=== PATIENT | female | born 1985 ===

== ENCOUNTER 2020-12-11 13:21 | Emergency (ER) | payer SELFPAY ==
--- NOTE | 2020-12-11 13:48 | Event Note ---
ED Screening Note Date of service: 12/11/20 Time: 13:38 ED Screening Note: This initial assessment/diagnostic orders/clinical plan/treatment(s) is/are subject to change based on patients health status, clinical progression and re- assessment by fellow clinical providers in the ED. Further treatment and workup at subsequent clinical providers discretion. Patient/guardian urged not to elope from the ED as their condition may be serious if not clinically assessed and managed. Initial orders include: 35-year-old obese female states she is Covid positive. She reports to the emergency room complaining of chills body aches dry cough nausea she denies vomiting and reports one episode of loose stool today. She is has a history of diabetes
[2020-12-11 14:19] LABS: Hematocrit 40.1 % (30.3-42.9); Hemoglobin 13.6 gm/dl (10.1-14.3); Mean Corpuscular HGB Conc 34 % (30-34); Mean Corpuscular Volume 85 fl (79-97); Platelet Count 298 K/mm3 (140-440); Red Blood Count 4.72 M/mm3 (3.65-5.03); Red Cell Distribution Width 14.1 % (13.2-15.2)
--- NOTE | 2020-12-11 14:22 | XRay Report ---
CHEST 2 VIEWS INDICATION / CLINICAL INFORMATION: covid +. COMPARISON: None available. FINDINGS: SUPPORT DEVICES: None. HEART / MEDIASTINUM: No significant abnormality. LUNGS / PLEURA: There are minimal patchy parenchymal opacities in the left lung base No pneumothorax. ADDITIONAL FINDINGS: No significant additional findings. IMPRESSION: 1. There is minimal patchy parenchymal opacity in the left lung base Signer Name: Devonte Mccracken MD Signed: 12/11/2020 2:17 PM Workstation Name: [id number]
[2020-12-11 14:33] LABS: Alanine Aminotransferase 14 units/L (7-56); Albumin 3.8 g/dL (3.9-5); Blood Urea Nitrogen 5 mg/dL (7-17); Calcium 8.4 mg/dL (8.4-10.2); Hemolysis Index 0
[2020-12-11 14:39] LABS: BUN/Creatinine Ratio 7
[2020-12-11] MEDS ORDERED: ONDANSETRON 4 MG/2 ML INJ IM ONE (15:38)
[2020-12-11] MEDS ORDERED: MORPHINE 4 MG/1 ML INJ IM ONE (15:38)
[2020-12-11] MEDS ORDERED: KETOROLAC 60 MG/2 ML INJ IM ONE (15:39)
--- NOTE | 2020-12-11 15:47 | Emergency Department Report ---
HPI - General Chief Complaint: Pain General PUI?: Yes Time Seen by Provider: 12/11/20 15:15 - HPI HPI: Room 38 The patient is a 35-year-old female presenting with a chief complaint of body aches. The patient states she tested positive for COVID-19 12/09/2020. The patient states the following day she noticed myalgias greatest on the left side headache and loss of sense of taste and smell. Patient admits to occasional shortness of breath and occasional cough productive of yellow sputum. Patient denies history of fever ED Past Medical Hx - Past Medical History Hx Diabetes: Yes - Surgical History Hx Cholecystectomy: Yes Additional Surgical History: CSECTION - Family History Family history: no significant - Social History Smoking Status: Former Smoker (None since 2006) Substance Use Type: None (Denies illicit drug use), Alcohol (Occasional) - Medications Home Medications: Home Medications Medication Instructions Recorded Confirmed Last Taken Type buPROPion XL [Wellbutrin Xl] 150 mg PO QAM 12/11/20 12/11/20 Unknown History ED Review of Systems ROS: Stated complaint: PT STATES SHE HAS POS COVID TEST Other details as noted in HPI Constitutional: denies: fever Eyes: denies: eye pain ENT: other (Loss of taste and smell) Respiratory: cough, shortness of breath Endocrine: no symptoms reported Gastrointestinal: denies: abdominal pain Genitourinary: denies: dysuria Musculoskeletal: myalgia Neurological: headache Physical Exam - Physical Exam Vital Signs: Vital Signs 12/11/20 13:35 Temperature 98.3 F Pulse Rate 98 H Respiratory 22 Rate Blood Pressure 139/87 O2 Sat by Pulse 97 Oximetry Physical Exam: GENERAL: The patient is well-developed well-nourished female lying on stretcher not appearing to be in acute distress. [] HEENT: Normocephalic. Atraumatic. Extraocular motions are intact. Patient has moist mucous membranes. NECK: Supple. No meningitic signs are noted. Trachea midline CHEST/LUNGS: Clear to auscultation. There is no respiratory distress noted. HEART/CARDIOVASCULAR: Regular. There is no tachycardia. There is no gallop rub or murmur. ABDOMEN: Abdomen is soft, nontender. Patient has normal bowel sounds. There is no abdominal distention. SKIN: There is no rash. There is no edema. There is no diaphoresis. NEURO: The patient is awake, alert, and oriented. The patient is cooperative. The patient has no focal neurologic deficits. The patient has normal speech. Cranial nerves II through XII grossly intact MUSCULOSKELETAL: There is no evidence of acute injury. ED Course Vital Signs 12/11/20 13:35 Temperature 98.3 F Pulse Rate 98 H Respiratory 22 Rate Blood Pressure 139/87 O2 Sat by Pulse 97 Oximetry - Reevaluation(s) Reevaluation #1: 12/11/20 16:54 Patient began complaining of substernal chest pain after pain medication administration. EKG reveals normal sinus rhythm with T wave inversions in feriorly. Patient advised she should be admitted to the hospital for further observation. ED Medical Decision Making - Lab Data Result diagrams: 12/11/20 13:59 12/11/20 13:59 Laboratory Tests 12/11/20 12/11/20 13:59 13:59 WBC 3.7 L RBC 4.72 Hgb 13.6 Hct 40.1 MCV 85 MCH 29 MCHC 34 RDW 14.1 Plt Count 298 Sodium 137 Potassium 4.0 Chloride 103.5 Carbon Dioxide 25 Anion Gap 13 BUN 5 L Creatinine 0.7 Estimated GFR > 60 BUN/Creatinine Ratio 7 Glucose 89 Calcium 8.4 Total Bilirubin 0.50 AST 16 ALT 14 Alkaline Phosphatase 81 Total Protein 7.2 Albumin 3.8 L Albumin/Globulin Ratio 1.1 - EKG Data -: EKG Interpreted by Me EKG shows normal: sinus rhythm Rate: normal - EKG Data When compared to previous EKG there are: previous EKG unavailable Interpretation: nonspecific ST-T wave liban (T wave inversions inferiorly) - Radiology Data Radiology results: report reviewed (Chest x-ray), image reviewed (Chest x-ray) interpreted by me: Chest x-ray-left lower lobe haziness. No pneumothorax. No foreign body [facility] [address] [place] [address] XRay Report Signed Patient: PEDRO CASTILLO MR#: [id number] : 1985 Acct:[id number] Age/Sex: 35 / F ADM Date: 12/11/20 Loc: ED Attending Dr: [facility] Date of Service: 12/11/20 Procedure(s): XR chest routine 2V Accession Number(s): [id number] cc: ISAURA FERRARO, AGACNP-BC Fluoro Time In Minutes: CHEST 2 VIEWS INDICATION / CLINICAL INFORMATION: covid +. COMPARISON: None available. FINDINGS: SUPPORT DEVICES: None. HEART / MEDIASTINUM: No significant abnormality. LUNGS / PLEURA: There are minimal patchy parenchymal opacities in the left lung base No pneumothorax. ADDITIONAL FINDINGS: No significant additional findings. IMPRESSION: 1. There is minimal patchy parenchymal opacity in the left lung base Signer Name: Devonte Mccracken MD Signed: 12/11/2020 2:17 PM Workstation Name: [id number] Transcribed By: SS Dictated By: Devonte Mccracken MD Electronically Authenticated By: Devonte Mccracken MD Signed Date/Time: 12/11/201416 DD/ 16 TD/TT: - Differential Diagnosis COVID-19 pneumonia, bronchitis, anxiety, myalgia Critical care attestation.: If time is entered above; I have spent that time in minutes in the direct care of this critically ill patient, excluding procedure time. ED Disposition Clinical Impression: Chest pain, COVID-19, Pneumonia Disposition: DC-09 OP ADMIT IP TO THIS HOSP Is pt being admited?: Yes Does the pt Need Aspirin: Yes Condition: Fair Instructions: Chest Pain (ED), Bacterial Pneumonia (ED) Referrals: PRIMARY CARE, [Primary Care Provider] - 3-5 Days Time of Disposition: 18:46 (Hospitalist notified (Dr. Wall)) HEART Score - HEART Score History: Moderately suspicious EKG: Non-specific Age: < 45 Risk factors: 1-2 risk factors Troponin: Troponin T < 0.010 ng/mL (0.00-0.029) 12/11/20 17:21 Troponin: < normal limit HEART Score: 3
[2020-12-11] MEDS ORDERED: ASPIRIN 325 MG TAB PO ONE (16:52)
[2020-12-11 18:23] VITALS: BP 94/51
[2020-12-11 18:47] LABS: HCG Qualitative,Urine Negative (Negative)
== END 2020-12-11 20:54 | disposition admitted as inpatient to this hospital (09) ==
LOC: ED 13:21
DX: U07.1 COVID-19 (principal); R07.9 Chest pain, unspecified; J18.9 Pneumonia, unspecified organism; E11.9 Type 2 diabetes mellitus without complications; Z90.49 Acquired absence of other specified parts of digestive tract; Z98.890 Other specified postprocedural states; Z87.891 Personal history of nicotine dependence; Z79.899 Other long term (current) drug therapy
CPT/HCPCS: 36415; 71046; 80053; 81025; 84484; 85027; 93005; 96372; 99284; J1885; J2270; J2405